=== PATIENT | male | born 1975 | race African-American/Black ===

== ENCOUNTER 2021-03-26 20:53 | Emergency (ER) | payer BC ==
[~2021-03-26] VITALS: Ht 188 cm; Wt 143.0 kg
[2021-03-26 22:56] LABS: BASO # 0.1 x10^3/uL (0.0-0.2); BASO % 1 % (0-3); EOS # 0.3 x10^3/uL (0.0-0.7); EOS % 3 % (0-3); HEMOGLOBIN 15.8 g/dL (13.0-17.5); LYMPH # 3.4 x10^3/uL (1.0-4.8); LYMPH % 34 % (24-48); MEAN CORPUSCULAR HEMOGLOBIN 32 pg (25-35); MEAN CORPUSCULAR HGB CONC 35 g/dL (31-37); MEAN CORPUSCULAR VOLUME 92 fL (79-100); MONO # 0.6 x10^3/uL (0.0-1.1); MONO % 6 % (0-9); NEUT # 5.6 x10^3/uL (1.8-7.7); NEUT % 56 % (31-73); PLATELET COUNT 236 x10^3/uL (140-400); RED BLOOD COUNT 4.87 x10^6/uL (4.30-5.70)
[2021-03-26 23:05] LABS: PROTHROMBIN TIME PATIENT 13.1 SEC (11.7-14.0)
[2021-03-26 23:07] LABS: CALCIUM 8.8 mg/dL (8.5-10.1); CREATININE 0.8 mg/dL (0.7-1.3); GFR 125.9; POTASSIUM 3.6 mmol/L (3.5-5.1)
[2021-03-26 23:08] LABS: D-DIMER 0.51 ug/mlFEU (0.00-0.50)
[2021-03-26 23:13] LABS: ALBUMIN 3.9 g/dL (3.4-5.0); ALBUMIN/GLOBULIN RATIO 1.2 (1.0-1.7); DIRECT BILIRUBIN 0.1 mg/dL (0.0-0.2); MAGNESIUM 1.9 mg/dL (1.8-2.4); TOTAL BILIRUBIN 0.5 mg/dL (0.2-1.0); TOTAL PROTEIN 7.1 g/dL (6.4-8.2)
--- NOTE | 2021-03-26 23:13 | RAD ---
EXAM: AP View of the chest DATE: 03/26/2021 11:07 PM INDICATION: Reason: chest pain / Spl. Instructions: / History: COMPARISON: No Prior FINDINGS: The heart is not enlarged. Mediastinal and hilar contours are normal. No focal parenchymal airspace opacity. No pleural effusion or pneumothorax. IMPRESSION: 1. No radiographic evidence for acute cardiopulmonary process. Electronically signed by: Jb Marina MD (03/26/2021 11:11 PM) [place]
--- NOTE | 2021-03-26 23:21 | PHYS DOC ---
Past Medical History Past Surgical History: No Surgical History Smoking Status: Current Every Day Smoker Additional Information: 1 PPD Alcohol Use: Occasionally General Adult EDM: Chief Complaint: HYPERTENSION HPI: HPI: Patient is a 45 year old male who presents to the emergency department chief complaint of high blood pressure at home. Patient states that his and other family members have frightened him, telling him he may have blood clots in his legs. Patient denies any aches or pains to his legs, states he has intermittent chest pains however has not had any chest pain or shortness of breath today. Patient states that he thought his blood pressure was high today because he felt a slight headache. Patient denies any nausea, vomiting, abdominal pains, or diarrhea. Patient denies any increased thirst or increased urination. Patient denies any chest palpitations, chest congestion or nasal congestion patient denies any blurred vision, syncopal episodes.. Patient denies any recent fever or chills. Patient states he has received both of the the COVID-19 virus vaccine doses. Patient denies any other physical complaints or physical concerns. Review of Systems: Review of Systems: 14 body systems of review of systems have been reviewed. See HPI for pertinent positives and negative responses, otherwise all other systems are negative, nonpertinent or noncontributory. Constitutional: Negative except as outlined in HPI above. Skin: Negative except as outlined in HPI above. Eyes: Negative except as outlined in HPI above. HENT: Negative except as outlined in HPI above. Respiratory: Negative except as outlined in HPI above. Cardiovascular: Negative except as outlined in HPI above. GI: Negative except as outlined in HPI above. : Negative except as outlined in HPI above. Musculoskeletal: Negative except as outlined in HPI above. Integument: Negative except as outlined in HPI above. Neurologic: Negative except as outlined in HPI above. Endocrine: Negative except as outlined in HPI above. Lymphatic: Negative except as outlined in HPI above. Psychiatric: Negative except as outlined in HPI above. Heart Score: C/O Chest Pain: Yes HEART Score for Chest Pain: HEART Score for Chest Pain Response (Comments) Value History Slighlty/Non-Suspicious 0 ECG Normal 0 Age >45 - < 65 1 Risk Factors No Risk Factors 0 Troponin < Normal Limit 0 Total 1 Risk Factors: Risk Factors: DM, Current or recent (<one month) smoker, HTN, HLP, family history of CAD, obesity. Risk Scores: Score 0 - 3: 2.5% MACE over next 6 weeks - Discharge Home Score 4 - 6: 20.3% MACE over next 6 weeks - Admit for Clinical Observation Score 7 - 10: 72.7% MACE over next 6 weeks - Early Invasive Strategies Physical Exam: PE: Constitutional: Well developed, well nourished, no acute distress, non-toxic appearance. 45-year-old male in no apparent distress. HENT: Normocephalic, atraumatic. Eyes: Conjunctiva normal, no discharge. Neck: Normal range of motion, no stridor. Cardiovascular: No cyanosis appreciated, distal cap refill less than 2 seconds. Heart rate regular, rhythm regular, heart sounds S1-S2 to auscultation. No murmur appreciated. Lungs & Thorax: Patient is in no respiratory distress, no audible adventitious lung sounds appreciated. Lung sounds clear to auscultation all lung jaquez, no adventitious lung sounds appreciated per auscultation. Abdomen: Nontender, no abnormalities noted. Skin: Warm, dry, no erythema, no rash. Back: No tenderness, no deformities. Extremities: No tenderness, no cyanosis, no clubbing, ROM intact, no edema. Patient has varicose veins of the upper thighs. No swelling of the lower extremities. 2+ dorsalis pedis/posterior tibial pulses bilaterally. Distal cap refill less than 2 seconds. No loss of sensation of the lower or upper extremities. Neurologic: Alert and oriented X 3, normal motor function, normal sensory function, no focal deficits noted. Psychologic: Affect normal, judgement normal, mood normal. Current Patient Data: Labs: Laboratory Tests Test 03/26/21 22:40 White Blood Count 10.0 x10^3/uL Red Blood Count 4.87 x10^6/uL Hemoglobin 15.8 g/dL Hematocrit 45.0 % Mean Corpuscular Volume 92 fL Mean Corpuscular Hemoglobin 32 pg Mean Corpuscular Hemoglobin Concent 35 g/dL Red Cell Distribution Width 13.0 % Platelet Count 236 x10^3/uL Neutrophils (%) (Auto) 56 % Lymphocytes (%) (Auto) 34 % Monocytes (%) (Auto) 6 % Eosinophils (%) (Auto) 3 % Basophils (%) (Auto) 1 % Neutrophils # (Auto) 5.6 x10^3/uL Lymphocytes # (Auto) 3.4 x10^3/uL Monocytes # (Auto) 0.6 x10^3/uL Eosinophils # (Auto) 0.3 x10^3/uL Basophils # (Auto) 0.1 x10^3/uL Prothrombin Time 13.1 SEC Prothromb Time International Ratio 1.0 D-Dimer (Sade) 0.51 ug/mlFEU Sodium Level 142 mmol/L Potassium Level 3.6 mmol/L Chloride Level 104 mmol/L Carbon Dioxide Level 27 mmol/L Anion Gap 11 Blood Urea Nitrogen 11 mg/dL Creatinine 0.8 mg/dL Estimated GFR (Cockcroft-Gault) 125.9 BUN/Creatinine Ratio 14 Glucose Level 113 mg/dL Calcium Level 8.8 mg/dL Magnesium Level 1.9 mg/dL Total Bilirubin 0.5 mg/dL Direct Bilirubin 0.1 mg/dL Aspartate Amino Transf (AST/SGOT) 33 U/L Alanine Aminotransferase (ALT/SGPT) 41 U/L Alkaline Phosphatase 124 U/L Troponin I Quantitative < 0.017 ng/mL HM-Wgg-U-Type Natriuretic Peptide 99 pg/mL Total Protein 7.1 g/dL Albumin 3.9 g/dL Albumin/Globulin Ratio 1.2 Lipase 125 U/L Thyroid Stimulating Hormone (TSH) 1.883 uIU/mL Laboratory Tests Test 03/26/21 22:40 White Blood Count 10.0 x10^3/uL (4.0-11.0) Red Blood Count 4.87 x10^6/uL (4.30-5.70) Hemoglobin 15.8 g/dL (13.0-17.5) Hematocrit 45.0 % (39.0-53.0) Mean Corpuscular Volume 92 fL (79-100) Mean Corpuscular Hemoglobin 32 pg (25-35) Mean Corpuscular Hemoglobin Concent 35 g/dL (31-37) Red Cell Distribution Width 13.0 % (11.5-14.5) Platelet Count 236 x10^3/uL (140-400) Neutrophils (%) (Auto) 56 % (31-73) Lymphocytes (%) (Auto) 34 % (24-48) Monocytes (%) (Auto) 6 % (0-9) Eosinophils (%) (Auto) 3 % (0-3) Basophils (%) (Auto) 1 % (0-3) Neutrophils # (Auto) 5.6 x10^3/uL (1.8-7.7) Lymphocytes # (Auto) 3.4 x10^3/uL (1.0-4.8) Monocytes # (Auto) 0.6 x10^3/uL (0.0-1.1) Eosinophils # (Auto) 0.3 x10^3/uL (0.0-0.7) Basophils # (Auto) 0.1 x10^3/uL (0.0-0.2) Prothrombin Time 13.1 SEC (11.7-14.0) Prothrombin Time INR 1.0 (0.8-1.1) D-Dimer (Sade) 0.51 ug/mlFEU (0.00-0.50) H Sodium Level 142 mmol/L (136-145) Potassium Level 3.6 mmol/L (3.5-5.1) Chloride Level 104 mmol/L (98-107) Carbon Dioxide Level 27 mmol/L (21-32) Anion Gap 11 (6-14) Blood Urea Nitrogen 11 mg/dL (8-26) Creatinine 0.8 mg/dL (0.7-1.3) Estimated GFR (Cockcroft-Gault) 125.9 BUN/Creatinine Ratio 14 (6-20) Glucose Level 113 mg/dL (70-99) H Calcium Level 8.8 mg/dL (8.5-10.1) Magnesium Level 1.9 mg/dL (1.8-2.4) Total Bilirubin 0.5 mg/dL (0.2-1.0) Direct Bilirubin 0.1 mg/dL (0.0-0.2) Aspartate Amino Transferase (AST) 33 U/L (15-37) Alanine Aminotransferase (ALT) 41 U/L (16-63) Alkaline Phosphatase 124 U/L (46-116) H Troponin I Quantitative < 0.017 ng/mL (0.000-0.055) Total Protein 7.1 g/dL (6.4-8.2) Albumin 3.9 g/dL (3.4-5.0) Albumin/Globulin Ratio 1.2 (1.0-1.7) Lipase 125 U/L (73-393) Laboratory Tests 03/26/21 22:40 Laboratory Tests 03/26/21 22:40 Vital Signs: Vital Signs Date Time Temp Pulse Resp B/P (MAP) Pulse Ox O2 Delivery O2 Flow Rate FiO2 03/26/21 22:01 98.6 94 18 156/106 95 Room Air 98.6 EKG: EKG: EKG performed at 2211 by ED nursing staff shows a normal sinus rhythm with left axis deviation, no other ectopy, heart rate 85 bpm, SC interval 0.162, QTc interval 0.433, no acute STEMI, no ACS, no acute ischemia appreciated, EKG interpreted by ED attending physician Dr. Ho. Radiology/Procedures: Radiology/Procedures: PATIENT: GAYLE HAQUE ACCOUNT: [id number] : 1975 LOCATION: ER AGE: 45 SEX: M EXAM STATUS: REG ER ORD. PHYSICIAN: SAGE ARCE APRN REASON: chest pain PROCEDURE: PORTABLE CHEST 1V EXAM: AP View of the chest DATE: 03/26/2021 11:07 PM INDICATION: Reason: chest pain / Spl. Instructions: / History: COMPARISON: No Prior FINDINGS: The heart is not enlarged. Mediastinal and hilar contours are normal. No focal parenchymal airspace opacity. No pleural effusion or pneumothorax. IMPRESSION: 1. No radiographic evidence for acute cardiopulmonary process. Electronically signed by: Jb Lewis MD (03/26/2021 11:11 PM) [facility] DICTATED and SIGNED BY: JB LEWIS MD DATE: 03/26/21 [id number] 0 Course & Med Decision Making: Course & Med Decision Making Pertinent Labs and Imaging studies reviewed. (See chart for details) 45-year-old male, vital signs reviewed, presents emergency department concerning high blood pressure and having family members scare him that he might have blood clots in his legs. A cardiorespiratory work-up was performed, D-dimer was slightly positive at 0.51, the patient had no Homans' sign, no pain to the lower extremities or paresthesias of the lower extremities, patient does have varicose veins, a sonogram of the lower extremities was performed related to positive D- dimer. The patient was not hypoxic, did not have any chest pains, did not have any shortness of breath, was nontoxic in appearance, CT angio chest not performed related to PERC rule not indicated for PE. Patient's labs unremarkable, sonogram of lower extremities did not reveal any deep vein thrombosis or abnormalities, the patient HEART score equals 1. Patient was not hypertensive during his ER stay, the patient remained pain-free, was not hypoxic, did not have any distress during his ER stay. Discussed at length with patient to keep accurate record of blood pressure daily for at least 2 weeks, follow-up with his primary care physician with record so that his primary care physician may determine if blood pressure medications are warranted. Patient gave verbal understanding of discharge home instructions, follow-up with PCP with blood pressure records, return to ER precautions and concerns, patient had no further questions or concerns, remained hemodynamically stable at discharge time, was thankful for his care and wished to go home at this time, patient was discharged home without incident. Dragon Disclaimer: Dragon Disclaimer: This electronic medical record was generated, in whole or in part, using a voice recognition dictation system. Departure Departure Impression: Primary Impression: High blood pressure Qualified Codes: I10 - Essential (primary) hypertension Additional Impression: Feared condition not demonstrated Disposition: 01 HOME / SELF CARE / HOMELESS Condition: GOOD Referrals: YOANA BRUSH MD (PCP) Additional Instructions: You were seen today in the emergency department for complaints of high blood pressure at home, you had also had symptoms of chest pains, and concerns that you may have blood clots in your legs. A extensive cardiorespiratory work-up was performed in the ED today, your lab work was within normal limits, you are not having a heart attack or myocardial infarction, your cardiac enzymes did not show any concerning findings, you did not show any signs of infection in your blood, your electrolytes were within normal limits. A chest x-ray did not show any signs of heart abnormalities or pneumonia's or other infectious disease, a sonogram of your legs did not find any deep vein thrombosis or clots in your veins. As we discussed, please keep a accurate record of your daily blood pressures and take your blood pressure record to see your primary care physician so that he may determine what type of blood pressure you might need to be started on if warranted. Please return to the emergency department for worsening symptoms or other concerns. It was a pleasure taking care of you today in the emergency department and I think you for allowing me to participate in your emergency health care needs. EMERGENCY DEPARTMENT GENERAL DISCHARGE INSTRUCTIONS Thank you for coming to [facility] Emergency Department (ED) today and trusting us with you care. We trust that you had a positive experience in our Emergency Department. If you wish to speak to the department management, you may call the Director at [phone]. YOUR FOLLOW UP INSTRUCTIONS ARE FOLLOWS: 1. Do you have a private Doctor? If you do not have a private doctor, please ask for a resource list of physicians or clinics that may be able to assist you with follow up care. 2. The Emergency Physicain has interpreted your x-rays. The X-Ray specialist will also review them. If there is a change in the findings, you will be notified in 48 hours when at all possible. 3. A lab test or culture has been done, your results will be reviewed and you will be notified if you need a change in treatment. ADDITIONAL INSTRUCTIONS AND INFORMATION: 1. Your care today has been supervised by a physician who is specially trained in emergency care. Many problems require more than one evaluation for a complete diagnosis and treatment. We recommend that you schedule your follow up appointment as recommended to ensure complete treatment of you illness or injury. If you are unable to obtain follow up care and continue to have a problem, or if your condition worsens, we recommend that you return to the ED. 2. We are not able to safely determine your condition over the phone nor are we able to give sound medical advice over the phone. For these safety reasons, if you call for medical advice we will ask you to come to the ED for further evaluation. 3. If you have any questions regarding these discharge instructions please call the ED at [phone]. SAFETY INFORMATION: In the interest of safety, wellness, and injury prevention; we encourage you to wear your sealbelt, if you smoke; quite smoking, and we encourage family to use a protect matthew helmet for bicycling and other sporting events that present an increased risk for head injury. IF YOUR SYMPTOMS WORSEN OR NEW SYMPTOMS DEVELOP, OR YOU HAVE CONCERNS ABOUT YOUR CONDITION; OR IF YOUR CONDITION WORSENS WHILE YOU ARE WAITING FOR YOUR FOLLOW UP APPOINTMENT; EITHER CONTACT YOUR PRIMARY CARE DOCTOR, THE PHYSICIAN WHOSE NAME AND NUMBER YOU WERE GIVEN, OR RETURN TO THE ED IMMEDIATELY. SAGE ARCE APRN Mar 26, 2021 23:21
--- NOTE | 2021-03-27 00:53 | RAD ---
Examination: Bilateral Lower Extremity Venous Doppler Ultrasound History: Bilateral lower extremity bruising Comparison: None Procedure: Smith scale, color flow 2D and spectal waveform analysis images are obtained with and witho ut compression in the area of the common femoral vein, superficial femoral vein - femoral vein juncti on, main femoral vein (superficial femoral vein) and popliteal vein. Veins of the proximal calf are a lso imaged. Findings: There is normal duplex flow, color flow and compressibility of all visualized vein segments. No evide nce of deep venous thrombus is present. Impression: No evidence of DVT the bilateral lower extremity venous system. Electronically signed by: Jagdeep Wahl MD (03/27/2021 12:51 AM) [id number]
--- NOTE | 2021-03-27 01:03 | EKG ---
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
[2021-03-27 01:24] VITALS: BP 152/103
== END 2021-03-27 01:30 | disposition home or self-care (01) ==
LOC: ER 20:53
DX: I10 Essential (primary) hypertension (principal); Z71.1 Person with feared health complaint in whom no diagnosis is made; F17.200 Nicotine dependence, unspecified, uncomplicated
CPT/HCPCS: 36415; 71045; 80053; 80076; 83690; 83735; 83880; 84443; 84484; 85025; 85379; 85610; 93005; 93970; 99285-25